=== PATIENT | male | born 1960 | race Caucasian/White ===

== ENCOUNTER 2023-04-30 05:28 | Emergency (ER) | payer OTHER ==
[~2023-04-30] VITALS: Ht 172.7 cm; Wt 87.0 kg
[2023-04-30] MEDS ORDERED: ACETAMINOPHEN WITH CODEINE 300/30MG TABLET PO ONE (06:45)
[2023-04-30] MEDS ORDERED: ACETAMINOPHEN WITH CODEINE 300/30MG TABLET PO NR (07:00)
[2023-04-30 07:02] VITALS: BP 142/76
[2023-04-30 09:42] LABS: CLARITY URINE CLOUDY (CLEAR); COLOR URINE RED (YELLOW); PH URINE 6.5 (4.5-8.0); SPECIFIC GRAVITY URINE 1.015 (1.005-1.030)
[2023-04-30 09:43] LABS: KETONES URINE TRACE (NEGATIVE); PROTEIN URINE 2+ (NEGATIVE)
[2023-04-30 09:44] LABS: LEUKOCYTE ESTERASE URINE TRACE (NEGATIVE); NITRITE URINE POSITIVE (NEGATIVE); OCCULT BLOOD URINE 3+ (NEGATIVE)
[2023-04-30] MEDS ORDERED: LEVO-65 PO (09:51)
== END 2023-04-30 10:09 | disposition home or self-care (01) ==
LOC: ER 05:28
DX: R33.9 Retention of urine, unspecified (principal); N39.0 Urinary tract infection, site not specified; R31.9 Hematuria, unspecified; E11.9 Type 2 diabetes mellitus without complications; I10 Essential (primary) hypertension; F17.200 Nicotine dependence, unspecified, uncomplicated
CPT/HCPCS: 81003; 99283; A4315